=== PATIENT | female | born 1980 | race Caucasian/White ===

== ENCOUNTER 2017-03-14 12:59 | Emergency (ER) | payer SELFPAY ==
[~2017-03-14] VITALS: Ht 175.3 cm; Wt 55.0 kg
[2017-03-14 13:01] VITALS: BP 114/74; PULSE 94; RESP 20; TEMP 98.1; O2SAT 98
[2017-03-14] MEDS ORDERED: LAMI300T PO (13:13)
[2017-03-14] MEDS ORDERED: PROZ40CA PO (13:14)
[2017-03-14] MEDS ORDERED: BUSP15TA PO (13:16)
[2017-03-14] MEDS ORDERED: ADDE30TA PO (13:16)
[2017-03-14] MEDS ORDERED: CLON1TAB PO (13:16)
[2017-03-14] MEDS ORDERED: LISD70 PO (13:16)
--- NOTE | 2017-03-14 13:37 | PD ---
HPI Chief Complaint: Psychiatric Symptoms Time Seen by Provider: 13:35 Travel History International Travel<30 days: No Contact w/Intl Traveler<30days: No Traveled to known affect area: No History of Present Illness HPI Patient comes in requesting psychiatric evaluation. Patient states she has a history of bipolar, anxiety, and ADHD has been out of her medications for approximately 5 days. Patient she is not sure head. Patient denies any homicidal or suicidal ideations. Denies any chest pain, shortness of breath, nausea, vomiting, abdominal pain, headache, fevers, or . Patient if she may be dehydrated as well. PFSH Past Medical History Bipolar Disorder: Yes Diminished Hearing: No ?: Not Past Surgical History Surgical History: No Previous Surgery Social History Alcohol Use: No Tobacco Use: No Substance Use: No Allergies-Medications Reported Meds & Prescriptions Reported Meds & Active Scripts Active Reported Adderall (Amphetamine-Dextroamphetamine) 30 Mg Tab 30 Mg PO BID Avoid late evening doses. Space doses at least 4 to 6 hours if more than once/day dosing. Vyvanse (Lisdexamfetamine Dimesylate) 70 Mg Cap 70 Mg PO DAILY Clonazepam 1 Mg Tab 1 Mg PO TID Buspirone (Buspirone HCl) 15 Mg Tab 15 Mg PO TID Prozac (Fluoxetine HCl) 40 Mg Cap 50 Mg PO DAILY Lamictal XR (Lamotrigine) 300 Mg Rashad 300 Mg PO DAILY Review of Systems Except as stated in HPI: all other systems reviewed are Neg Physical Exam Narrative GENERAL: Well-developed, well nourished, in no acute distress, and non-ill appearing. SKIN: Focused skin assessment warm and dry. HEAD: Atraumatic. Normocephalic. EYES: Pupils equal and round. EOMI. No scleral icterus. No injection or drainage. ENT: No nasal bleeding or discharge. Mucous membranes pink and moist. NECK: Trachea midline. No JVD. Supple. No nuclear rigidity. CARDIOVASCULAR: Regular rate and rhythm. No murmur appreciated. RESPIRATORY: No accessory muscle use. No respiratory distress. Clear to auscultation. Breath sounds equal bilaterally. MUSCULOSKELETAL: No obvious deformities. No clubbing. No cyanosis. No edema. Full range of motion. NEUROLOGICAL: Awake and alert. No obvious cranial nerve deficits. Motor grossly within normal limits. Normal speech. PSYCHIATRIC: Appropriate mood and affect; insight and judgment normal. Data Data Last Documented VS Vital Signs Date Time Temp Pulse Resp B/P Pulse Ox O2 Delivery O2 Flow Rate FiO2 03/14/17 13:01 98.1 94 20 114/74 98 Room Air Orders Complete Blood Count With Diff (03/14/17 13:33) Comprehensive Metabolic Panel (03/14/17 13:33) Urinalysis - C+S If Indicated (03/14/17 13:33) Ed Urine Pregnancytest Poc (03/14/17 13:33) Psych Screen (03/14/17 13:33) Drug Screen, Random Urine (03/14/17 13:33) Alcohol (Ethanol) (03/14/17 13:33) Salicylates (Aspirin) (03/14/17 13:33) Tylenol (Acetaminophen) (03/14/17 13:33) Labs Laboratory Tests Test 03/14/17 03/14/17 13:49 14:32 White Blood Count 5.0 TH/MM3 Red Blood Count 4.66 MIL/MM3 Hemoglobin 13.7 GM/DL Hematocrit 40.4 % Mean Corpuscular Volume 86.8 FL Mean Corpuscular Hemoglobin 29.5 PG Mean Corpuscular Hemoglobin 34.0 % Concent Red Cell Distribution Width 12.9 % Platelet Count 228 TH/MM3 Mean Platelet Volume 7.5 FL Neutrophils (%) (Auto) 78.1 % Lymphocytes (%) (Auto) 17.2 % Monocytes (%) (Auto) 4.5 % Eosinophils (%) (Auto) 0.0 % Basophils (%) (Auto) 0.2 % Neutrophils # (Auto) 3.9 TH/MM3 Lymphocytes # (Auto) 0.9 TH/MM3 Monocytes # (Auto) 0.2 TH/MM3 Eosinophils # (Auto) 0.0 TH/MM3 Basophils # (Auto) 0.0 TH/MM3 CBC Comment AUTO DIFF Sodium Level 137 MEQ/L Potassium Level 3.6 MEQ/L Chloride Level 100 MEQ/L Carbon Dioxide Level 26.8 MEQ/L Anion Gap 10 MEQ/L Blood Urea Nitrogen 7 MG/DL Creatinine 0.69 MG/DL Estimat Glomerular Filtration 97 ML/MIN Rate Random Glucose 72 MG/DL Calcium Level 9.0 MG/DL Total Bilirubin 0.7 MG/DL Aspartate Amino Transf 12 U/L (AST/SGOT) Alanine Aminotransferase 14 U/L (ALT/SGPT) Alkaline Phosphatase 69 U/L Total Protein 7.3 GM/DL Albumin 4.0 GM/DL Salicylates Level LESS THAN 1.7 MG/DL Acetaminophen Level LESS THAN 2.0 MCG/ML Ethyl Alcohol Level LESS THAN 3 MG/DL Urine Color YELLOW Urine Turbidity CLEAR Urine pH 5.5 Urine Specific [place] 1.015 Urine Protein TRACE mg/dL Urine Glucose (UA) NEG mg/dL Urine Ketones 150 mg/dL Urine Occult Blood SMALL Urine Nitrite NEG Urine Bilirubin NEG Urine Urobilinogen LESS THAN 2.0 MG/DL Urine Leukocyte Esterase NEG Urine RBC 1 /hpf Urine WBC 1 /hpf Urine Squamous Epithelial 1 /hpf Cells Urine Bacteria OCC /hpf Urine Hyaline Casts 8 /lpf Urine Granular Casts 5 /lpf Urine Mucus FEW /lpf Microscopic Urinalysis Comment CULT NOT INDICATED MDM Medical Decision Making Medical Screen Exam Complete: Yes Emergency Medical Condition: Yes Differential Diagnosis Bipolar, depression, electrolyte abnormality, UTI, other Narrative Course Patient was seen and examined. Labs were obtained and reviewed. Patient with asymptomatic hematuria. No obvious evidence of infection. This finding was discussed with the patient and the patient was instructed to follow up with Urology to recheck urine and rule out etiologies such as cancer. Patient agreed with plan. Patient in no obvious distress upon re-evaluation. All pertinent laboratory result(s) discussed with patient. Any questions/concerns in reference to patient diagnosis/condition discussed and clarified prior to patient's discharge. Reinforced sheer importance of close follow up with patient's primary physician or primary care clinic and/or urologist for further evaluation of asymptomatic hematuria that was noted. Instructed patient to return to ED immediately, if symptoms return/worsen. Pt showed understanding of above instructions. Further instructions and recommendations were detailed in discharge paperwork. Patient medically cleared for further treatment and evaluation by psych. Final disposition per psych. Diagnosis Primary Impression: Asymptomatic microscopic hematuria Patient Instructions: Acute Hematuria (ED), General Instructions Additional Instructions: Follow-up with your primary care physician and/or urologist next week for evaluation of blood noted in the urine today. Return to the emergency department if symptoms get worse. Condition: Stable Audi Mays March 14, 2017 13:37
[2017-03-14 14:23] LABS: AUTOMATED NEUTROPHIL # 3.9 TH/MM3 (1.8-7.7); BASOPHIL % 0.2 % (0.0-2.0); HEMATOCRIT 40.4 % (35.0-46.0); HEMO FLAGS AUTO DIFF; LYMPH % 17.2 % (9.0-44.0); LYMPHOCYTE # 0.9 TH/MM3 (1.0-4.8); MEAN CELL VOLUME 86.8 FL (80.0-100.0); MEAN CORPUSCULAR HEMOGLOBIN 29.5 PG (27.0-34.0); MONO % 4.5 % (0.0-8.0); NEUT % 78.1 % (16.0-70.0); PLATELET COUNT 228 TH/MM3 (150-450); RED BLOOD COUNT 4.66 MIL/MM3 (4.00-5.30); RED CELL DISTRIBUTION WIDTH 12.9 % (11.6-17.2)
[2017-03-14 14:36] LABS: ALT (GPT) 14 U/L (10-53); ANION GAP 10 MEQ/L (5-15); AST (GOT) 12 U/L (15-37); BICARBONATE 26.8 MEQ/L (21.0-32.0); BLOOD UREA NITROGEN 7 MG/DL (7-18); CHLORIDE 100 MEQ/L (98-107); GLOMERULAR FILTRATION RATE 97 ML/MIN (>89); POTASSIUM 3.6 MEQ/L (3.5-5.1); SODIUM (NA) 137 MEQ/L (136-145)
[2017-03-14 14:39] LABS: ACETAMINOPHEN LESS THAN 2.0 MCG/ML (10.0-30.0); ALKALINE PHOSPHATASE 69 U/L (45-117); TOTAL BILIRUBIN ADULT 0.7 MG/DL (0.2-1.0)
[2017-03-14 14:55] LABS: AMPHETAMINE, URINE NEG (NEG); BARBITURATES, URINE NEG (NEG); COCAINE, URINE NEG (NEG)
[2017-03-14 14:57] LABS: BACTERIA, URINE OCC /hpf; BLOOD, URINE SMALL (NEG); COMMENT (UR) CULT NOT INDICATED; CULTURE IF INDICATED CULT NOT INDICATED; GLUCOSE,URINE NEG (NEG); GRANULAR CAST, URINE 5 /lpf; HYALINE CAST, URINE 8 /lpf (RARE); KETONE, URINE 150 mg/dL (NEG); MUCUS URINE FEW /lpf (OCC); NITRITE,URINE NEG (NEG); PH, URINE 5.5 (5.0-8.5); SQUAMOUS EPITHELIAL CELL URINE 1 /hpf (0-5); URINE COLOR YELLOW (YELLW/STRAW)
[2017-03-14 15:07] LABS: OVALOCYTES 1+ (NORMAL); PLATELET ESTIMATE SMEAR NORMAL (NORMAL); PLATELET MORPHOLOGY NORMAL (NORMAL); SCAN/DIFF AUTO DIFF CONFIRMED
[2017-03-14 16:34] VITALS: BP 117/61; PULSE 69; RESP 16; TEMP 98.7; O2SAT 97
[2017-03-14 18:59] VITALS: BP 118/58; PULSE 80; RESP 16; O2SAT 99
[2017-03-14 19:03] VITALS: BP 116/58; PULSE 80; RESP 16; O2SAT 99
[2017-03-14 22:00] VITALS: BP 114/72; PULSE 73; RESP 17; O2SAT 97
[2017-03-15 02:09] VITALS: BP 114/67; PULSE 81; RESP 17; O2SAT 99
[2017-03-15 06:00] VITALS: BP 101/57; PULSE 50; RESP 17; O2SAT 99
[2017-03-15 10:33] VITALS: BP 92/52; PULSE 80; RESP 16; TEMP 96.9; O2SAT 99
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
[2017-03-15] MEDS ORDERED: hydrOXYzine PAMOATE 25 MG CAP PO ONE (12:30)
== END 2017-03-15 12:45 | disposition home or self-care (01) ==
LOC: NEPD 12:59 → NEPJ 03-15 12:45
DX: R31.21 Asymptomatic microscopic hematuria (principal); F31.9 Bipolar disorder, unspecified; Z79.899 Other long term (current) drug therapy
CPT/HCPCS: 80053; 80307; 81001; 84703; 85025; 99283; Q0177